=== PATIENT | male | born 1950 | race Caucasian/White ===

== ENCOUNTER 2021-02-16 16:46 | Emergency (ER) | payer MEDICARE, BC ==
[2021-02-16 16:50] VITALS: RESP 20; TEMP 98.5
--- NOTE | 2021-02-16 17:31 | ED ---
General Adult HPI - General Chief complaint: Recheck/Abnormal Lab/Rx Stated complaint: abnormal labs Time Seen by Provider: 02/16/21 16:53 Source: patient Mode of arrival: ambulatory Limitations: no limitations - History of Present Illness Initial comments: 71-year-old male presents to the emergency department accompanied by his spouse for evaluation of weakness. Patient states he has a history of liver disease and is concerned about progression of illness causing his weakness. States he slept poorly last night and has been unable to do as much as usual over the past several days. Complains of lack of energy, feeling chilled, and intermittent h eadaches for several weeks. Spouse reports she is concerned about blood in his urine due to its darkened appearance. Patient does report lower extremity edema, which he states is not unusual, however also reports new onset right calf pain that began 2 days ago. Denies fever, chest pain, shortness of breath, difficulty breathing, abdominal pain, constipation, and dysuria. - Related Data Home Medications Medication Instructions Recorded Confirmed Acetaminophen [Tylenol] 325 - 650 mg PO Q4H PRN 02/16/21 02/16/21 Acetaminophen-Codeine 300-30mg 1 tab PO TID PRN 02/16/21 02/16/21 [Tylenol w/codeine #3] Bumetanide [BUMEX] 2 mg PO Q12H 02/16/21 02/16/21 Fluticasone Nasal [place] [Flonase 2 spr EA NOSTRIL DAILY 02/16/21 02/16/21 Nasal [place]] Gabapentin 800 mg PO BID 02/16/21 02/16/21 Insulin Glargine,Hum.rec.anlog 60 unit SQ BID 02/16/21 02/16/21 [Lantus Solostar Pen] Insulin Lispro [humaLOG Kwikpen] 60 unit SQ AC-TID 02/16/21 02/16/21 Lactulose [Constulose] 20 gm PO TID 02/16/21 02/16/21 Potassium Gluconate [Potassium 99 mg PO DAILY PRN 02/16/21 02/16/21 Gluconate ER] Spironolactone 100 mg PO DAILY 02/16/21 02/16/21 Tamsulosin [Flomax] 0.4 mg PO HS 02/16/21 02/16/21 Allergies Allergy/AdvReac Type Severity Reaction Status Date / Time azithromycin AdvReac Nausea & Verified 02/16/21 20:27 [From Zithromax Z-Raphael] Vomiting Review of Systems ROS Statement: Those systems with pertinent positive or pertinent negative responses have been documented in the HPI. ROS Other: All systems not noted in ROS Statement are negative. Past Medical History Past Medical History: Hypertension, Liver Disease History of Any Multi-Drug Resistant Organisms: None Reported Past Surgical History: No Surgical Hx Reported Past Psychological History: No Psychological Hx Reported Smoking Status: Never smoker Past Alcohol Use History: None Reported Past Drug Use History: None Reported General Exam Limitations: no limitations General appearance: alert, in no apparent distress Head exam: Present: atraumatic, normocephalic, normal inspection Eye exam: Present: normal appearance, PERRL, EOMI. Absent: scleral icterus, conjunctival injection, periorbital swelling Pupils: Present: other (sclera do not appear yellowed) ENT exam: Present: normal exam, normal oropharynx, mucous membranes moist Neck exam: Present: normal inspection, full ROM. Absent: tenderness, meningismus Respiratory exam: Present: normal lung sounds bilaterally. Absent: respiratory distress, wheezes, rales, rhonchi, stridor Cardiovascular Exam: Present: regular rate, normal rhythm, normal heart sounds. Absent: systolic murmur, diastolic murmur, rubs, gallop, clicks GI/Abdominal exam: Present: soft, normal bowel sounds. Absent: distended, tenderness, guarding, rebound, rigid Left Hand Wrist exam: Present: swelling (mild edema of the left hand) Left Upper Leg exam: Present: normal inspection, full ROM. Absent: tenderness, swelling Knee exam: Present: normal inspection, full ROM. Absent: tenderness, swelling Lower Leg exam: Present: swelling (1+ pitting edema). Absent: tenderness, erythema, Homans' sign Ankle exam: Present: swelling (2+ pitting edema) Foot/Toe exam: Present: swelling Neurovascular tendon exam: Present: no vascular compromise (+2 pedal and post- tibial pulses palpable). Absent: pulse deficit, abnormal cap refill, motor deficit, sensory deficit Right Hip exam: Present: normal inspection, full ROM. Absent: tenderness, swelling Upper Leg exam: Present: normal inspection, full ROM. Absent: tenderness, swelling Knee exam: Present: normal inspection, full ROM. Absent: tenderness, swelling Lower Leg exam: Present: tenderness (right calf tenderness, worse with palpation), swelling (RLE edema>LLE edema; 2+ pitting edema). Absent: erythema, Homans' sign Ankle exam: Present: swelling (2+ pitting edema). Absent: tenderness, erythema Foot/Toe exam: Present: swelling. Absent: tenderness Neurovascular tendon exam: Present: no vascular compromise. Absent: pulse deficit, abnormal cap refill, motor deficit, sensory deficit, extremity cold to touch Back exam: Present: normal inspection. Absent: CVA tenderness (R), CVA tenderness (L) Neurological exam: Present: alert, oriented X3, CN II-XII intact Expanded Patient oriented to: Present: person, place, time Speech: Present: fluid speech Cranial nerves: EOM's Intact: Normal Motor strength exam: RUE: 5, LUE: 5, RLE: 5, LLE: 5 Eye Response: (4) open spontaneously Motor Response: (6) obeys commands Verbal Response: (5) oriented Psychiatric exam: Present: normal affect, normal mood Skin exam: Present: warm, dry, intact, normal color, other (no appearance of jaundice). Absent: rash Course Vital Signs 02/16/21 02/16/21 02/16/21 16:47 18:00 20:00 Temperature 98.5 F Pulse Rate 62 76 72 Respiratory 20 20 20 Rate Blood Pressure 148/67 153/52 124/44 O2 Sat by Pulse 100 99 95 Oximetry 02/16/21 02/16/21 21:45 22:51 Temperature Pulse Rate 62 67 Respiratory 20 20 Rate Blood Pressure 144/87 115/57 O2 Sat by Pulse 98 98 Oximetry Medical Decision Making - Medical Decision Making This is a 71-year-old male with a complex medical history significant for type 2 diabetes, liver disease, and hypertension. He presents to the emergency department this evening accompanied by his spouse for evaluation weakness that has been ongoing issue over the past several months, but has worsened somewhat over the past few weeks. Patient's spouse expresses concern about worsening of his liver disease, but also is concerned about worsening right lower extremity edema and calf pain concerning for DVT. Upon exam, patient is alert and oriented and in no acute distress. Patient is neurologically intact with no focal deficits. Abdomen is obese, soft, and nontender. He does not appear jaundiced. He does not complain of headache, chest pain, or abdominal pain upon presentation. Does complain of worsening right lower extremity edema that is accompanied by pain in the right calf. Compression stockings were removed in order to fully examine lower extremities. Pedal and posttibial pulses are easily palpable; negative Homans sign; right lower extremity edema is greater than left lower extremity edema. Ultrasound of the right lower extremity was obtained and is negative for DVT. An attempt to further evaluate patient's ongoing weakness, laboratory studies, chest x-ray, and EKG were obtained. Laboratory studies were reviewed. There were no baseline studies available for comparison as patient has not had a previous workup done at this facility. Hematology study shows low RBCs, hemoglobin, hematocrit, and platelet count. He is mildly dehydrated with a sodium of 133 and BUN 22; due to peripheral edema, I V fluids were not administered. Patient tolerating oral intake without difficulty. Glucose is elevated at 214; he is a known diabetic and has not yet taken his insulin. Total bilirubin is 3.2 and Ammonia level is 70. Though concerning levels, patient is alert with no neurological findings. Spouse reports known elevated ammonia level, however does not have a value to provide any baseline information. Urinalysis is unremarkable. EKG shows normal sinus rhythm. Chest x-ray has no acute findings. Patient has had inconsistent follow-up care regarding his cirrhosis of the liver. He is currently prescribed lactulose 3 times a day but is often not taking it as prescribed. States he has not seen his GI doctor, DR. Jones at [facility] in [place], for nearly one year due to COVID. This patient's care was discussed with my attending Dr. Noble. As patient does not exhibit any neurological symptoms, is tolerating oral intake without difficulty, and has the ability to follow up with a GI provider, he will be discharged home with strict return parameters. Encouraged to call both his PCP and GI doctor for follow up appointments on Thursday morning. Reiterated importance of medication compliance. Given dose of Lactulose prior to departure. Patient and spouse verbalize understanding and agree with this plan. - Lab Data Result diagrams: 02/16/21 18:01 02/16/21 18: Lab Results 02/16/21 02/16/21 02/16/21 Range/Units 18: 18: 18: WBC 4.6 (3.8-10.6) k/uL RBC 3.68 L (4.30-5.90) m/uL Hgb 12.6 L (13.0-17.5) gm/dL Hct 36.3 L (39.0-53.0) % MCV 98.6 (80.0-100.0) fL MCH 34.2 (25.0-35.0) pg MCHC 34.7 (31.0-37.0) g/dL RDW 14.9 (11.5-15.5) % Plt Count 75 L (150-450) k/uL MPV 7.3 Neutrophils % 74 % Lymphocytes % 14 % Monocytes % 7 % Eosinophils % 1 % Basophils % 0 % Neutrophils # 3.4 (1.3-7.7) k/uL Lymphocytes # 0.7 L (1.0-4.8) k/uL Monocytes # 0.3 (0-1.0) k/uL Eosinophils # 0.0 (0-0.7) k/uL Basophils # 0.0 (0-0.2) k/uL PT 11.1 (9.0-12.0) sec INR 1.1 (<1.2) APTT 27.3 (22.0-30.0) sec Sodium 133 L (137-145) mmol/L Potassium 4.2 (3.5-5.1) mmol/L Chloride 103 (98-107) mmol/L Carbon Dioxide 22 (22-30) mmol/L Anion Gap 8 mmol/L BUN 22 H (9-20) mg/dL Creatinine 0.87 (0.66-1.25) mg/dL Est GFR (CKD-EPI)AfAm >90 (>60 ml/min/1.73 sqM) Est GFR (CKD-EPI)NonAf 88 (>60 ml/min/1.73 sqM) Glucose 214 H (74-99) mg/dL Calcium 9.6 (8.4-10.2) mg/dL Magnesium 2.2 (1.6-2.3) mg/dL Total Bilirubin 3.2 H (0.2-1.3) mg/dL AST 34 (17-59) U/L ALT 17 (4-49) U/L Alkaline Phosphatase 87 (38-126) U/L Ammonia (<30) umol/L Troponin I (0.000-0.034) ng/mL NT-Pro-B Natriuret Pep pg/mL Total Protein 6.3 (6.3-8.2) g/dL Albumin 3.1 L (3.5-5.0) g/dL Urine Color Urine Appearance (Clear) Urine pH (5.0-8.0) Ur Specific [place] (1.001-1.035) Urine Protein (Negative) Urine Glucose (UA) (Negative) Urine Ketones (Negative) Urine Blood (Negative) Urine Nitrite (Negative) Urine Bilirubin (Negative) Urine Urobilinogen (<2.0) mg/dL Ur Leukocyte Esterase (Negative) 02/16/21 02/16/21 02/16/21 Range/Units 18:01 18:01 18:01 WBC (3.8-10.6) k/uL RBC (4.30-5.90) m/uL Hgb (13.0-17.5) gm/dL Hct (39.0-53.0) % MCV (80.0-100.0) fL MCH (25.0-35.0) pg MCHC (31.0-37.0) g/dL RDW (11.5-15.5) % Plt Count (150-450) k/uL MPV Neutrophils % % Lymphocytes % % Monocytes % % Eosinophils % % Basophils % % Neutrophils # (1.3-7.7) k/uL Lymphocytes # (1.0-4.8) k/uL Monocytes # (0-1.0) k/uL Eosinophils # (0-0.7) k/uL Basophils # (0-0.2) k/uL PT (9.0-12.0) sec INR (<1.2) APTT (22.0-30.0) sec Sodium (137-145) mmol/L Potassium (3.5-5.1) mmol/L Chloride (98-107) mmol/L Carbon Dioxide (22-30) mmol/L Anion Gap mmol/L BUN (9-20) mg/dL Creatinine (0.66-1.25) mg/dL Est GFR (CKD-EPI)AfAm (>60 ml/min/1.73 sqM) Est GFR (CKD-EPI)NonAf (>60 ml/min/1.73 sqM) Glucose (74-99) mg/dL Calcium (8.4-10.2) mg/dL Magnesium (1.6-2.3) mg/dL Total Bilirubin (0.2-1.3) mg/dL AST (17-59) U/L ALT (4-49) U/L Alkaline Phosphatase (38-126) U/L Ammonia 70 H (<30) umol/L Troponin I <0.012 (0.000-0.034) ng/mL NT-Pro-B Natriuret Pep 195 pg/mL Total Protein (6.3-8.2) g/dL Albumin (3.5-5.0) g/dL Urine Color Urine Appearance (Clear) Urine pH (5.0-8.0) Ur Specific [place] (1.001-1.035) Urine Protein (Negative) Urine Glucose (UA) (Negative) Urine Ketones (Negative) Urine Blood (Negative) Urine Nitrite (Negative) Urine Bilirubin (Negative) Urine Urobilinogen (<2.0) mg/dL Ur Leukocyte Esterase (Negative) 02/16/21 Range/Units 20:00 WBC (3.8-10.6) k/uL RBC (4.30-5.90) m/uL Hgb (13.0-17.5) gm/dL Hct (39.0-53.0) % MCV (80.0-100.0) fL MCH (25.0-35.0) pg MCHC (31.0-37.0) g/dL RDW (11.5-15.5) % Plt Count (150-450) k/uL MPV Neutrophils % % Lymphocytes % % Monocytes % % Eosinophils % % Basophils % % Neutrophils # (1.3-7.7) k/uL Lymphocytes # (1.0-4.8) k/uL Monocytes # (0-1.0) k/uL Eosinophils # (0-0.7) k/uL Basophils # (0-0.2) k/uL PT (9.0-12.0) sec INR (<1.2) APTT (22.0-30.0) sec Sodium (137-145) mmol/L Potassium (3.5-5.1) mmol/L Chloride (98-107) mmol/L Carbon Dioxide (22-30) mmol/L Anion Gap mmol/L BUN (9-20) mg/dL Creatinine (0.66-1.25) mg/dL Est GFR (CKD-EPI)AfAm (>60 ml/min/1.73 sqM) Est GFR (CKD-EPI)NonAf (>60 ml/min/1.73 sqM) Glucose (74-99) mg/dL Calcium (8.4-10.2) mg/dL Magnesium (1.6-2.3) mg/dL Total Bilirubin (0.2-1.3) mg/dL AST (17-59) U/L ALT (4-49) U/L Alkaline Phosphatase (38-126) U/L Ammonia (<30) umol/L Troponin I (0.000-0.034) ng/mL NT-Pro-B Natriuret Pep pg/mL Total Protein (6.3-8.2) g/dL Albumin (3.5-5.0) g/dL Urine Color Yellow Urine Appearance Clear (Clear) Urine pH 6.0 (5.0-8.0) Ur Specific [place] 1.018 (1.001-1.035) Urine Protein Negative (Negative) Urine Glucose (UA) 2+ H (Negative) Urine Ketones Negative (Negative) Urine Blood Negative (Negative) Urine Nitrite Negative (Negative) Urine Bilirubin Negative (Negative) Urine Urobilinogen 6.0 (<2.0) mg/dL Ur Leukocyte Esterase Negative (Negative) - EKG Data EKG shows normal: sinus rhythm Rate: normal EKG Comments: EKG was obtained at 1740 and shows normal sinus rhythm with sinus arrhythmia. Ventricular rate 73, NC interval 190, QRS duration 106, QT/QTc 416/450. - Radiology Data Radiology results: report reviewed, image reviewed Ultrasound of the right upper quadrant was obtained. Report was reviewed in its entirety. Impression per Dr. Castro is gallbladder not seen. No dilated ducts. Limited exam. Venous Doppler study of the right lower extremity was obtained. Report was reviewed in its entirety. Impression per Dr. Castro is no evidence of deep vein thrombosis in the right leg. Two-view chest x-ray was obtained. Report was reviewed in its entirety. Impression per Dr. Castro is no active cardiopulmonary disease. No change. Disposition Clinical Impression: Chronic liver disease and cirrhosis, Hyperbilirubinemia, Dehydration, mild, Thrombocytopenia Disposition: HOME SELF-CARE Condition: Stable Instructions (If sedation given, give patient instructions): Cirrhosis (ED), Liver Disease Diet (DC) Additional Instructions: Please follow your home medication regimen exactly as prescribed. Call you GI doctor, DR. Jones, to schedule a recheck. Follow up with your family doctor early next week if you will be delayed in seeing Dr. Jones. Return to the Emergency Department with any new, worsening, or concerning symptoms. Is patient prescribed a controlled substance at d/c from ED?: No Referrals: Saul Copeland DO [Primary Care Provider] - 1-2 days Time of Disposition: 23:45
[2021-02-16 18:23] LABS: Basophils % (A) 0 %; Eosinophils % (A) 1 %; HCT 36.3 % (39.0-53.0); HGB 12.6 gm/dL (13.0-17.5); Lymphocytes # (A) 0.7 k/uL (1.0-4.8); Lymphocytes % (A) 14 %; MCH 34.2 pg (25.0-35.0); MCHC 34.7 g/dL (31.0-37.0); MCV 98.6 fL (80.0-100.0); Mean Platelet Volume 7.3; Monocytes # (A) 0.3 k/uL (0-1.0); Monocytes % (A) 7 %; Neutrophils # (A) 3.4 k/uL (1.3-7.7); Neutrophils % (A) 74 %; RBC 3.68 m/uL (4.30-5.90); RDW 14.9 % (11.5-15.5); WBC 4.6 k/uL (3.8-10.6)
[2021-02-16 18:24] LABS: INR 1.1 (<1.2); Partial Thromboplastin Time 27.3 sec (22.0-30.0); Prothrombin Time 11.1 sec (9.0-12.0)
[2021-02-16 18:38] LABS: ALT 17 U/L (4-49); AST 34 U/L (17-59); African American GFR (CKD) >90 (>60 ml/min/1.73 sqM); Albumin 3.1 g/dL (3.5-5.0); Alkaline Phosphatase 87 U/L (38-126); Anion Gap 8 mmol/L; Blood Urea Nitrogen 22 mg/dL (9-20); Calcium 9.6 mg/dL (8.4-10.2); Carbon Dioxide 22 mmol/L (22-30); Chloride 103 mmol/L (98-107); Glucose 214 mg/dL (74-99); Magnesium 2.2 mg/dL (1.6-2.3); Non-African American GFR(CKD) 88 (>60 ml/min/1.73 sqM); Potassium 4.2 mmol/L (3.5-5.1); Sodium 133 mmol/L (137-145); Total Bilirubin 3.2 mg/dL (0.2-1.3); Total Protein 6.3 g/dL (6.3-8.2)
--- NOTE | 2021-02-16 18:52 | XR ---
EXAMINATION TYPE: XR chest 2V DATE OF EXAM: 02/16/2021 COMPARISON: NONE HISTORY: Weakness TECHNIQUE: 2 views FINDINGS: There is no heart failure nor confluent pneumonic infiltrate. Costophrenic angles are clear . There are no hilar masses. Bony thorax is intact. IMPRESSION: No active cardiopulmonary disease. No change.
--- NOTE | 2021-02-16 19:45 | US ---
EXAMINATION TYPE: US venous doppler duplex LE RT DATE OF EXAM: 02/16/2021 7:37 PM COMPARISON: NONE CLINICAL HISTORY: pain, right calf. SIDE PERFORMED: Right TECHNIQUE: The lower extremity deep venous system is examined utilizing real time linear array sonog slade with graded compression, doppler sonography and color-flow sonography. VESSELS IMAGED: Common Femoral Vein Deep Femoral Vein Greater Saphenous Vein * Femoral Vein Popliteal Vein Small Saphenous Vein * Proximal Calf Veins (* superficial vessels) Right Leg: Appears negative for DVT IMPRESSION: No evidence of deep vein thrombosis in the right leg.
[2021-02-16 19:49] LABS: Platelet Count 75 k/uL (150-450)
[2021-02-16 20:52] LABS: Appearance,Urine Clear (Clear); Bilirubin,Urine Negative (Negative); Blood,Urine Negative (Negative); Color,Urine Yellow; Glucose,Urine (UA) 2+ (Negative); Ketones,Urine Negative (Negative); Leukocyte Esterase,Urine Negative (Negative); Nitrite,Urine Negative (Negative); Protein,Urine Negative (Negative); Specific Gravity,Urine 1.018 (1.001-1.035)
[2021-02-16] MEDS ORDERED: GABAPENTIN 400 MG CAP PO STA (22:44)
[2021-02-16] MEDS ORDERED: Acetaminophen-Codeine 300-30mg TAB PO STA (22:44)
[2021-02-16 22:57] VITALS: BP 115/57; PULSE 67
--- NOTE | 2021-02-16 23:00 | US ---
EXAMINATION TYPE: US abdomen limited DATE OF EXAM: 02/16/2021 COMPARISON: NONE CLINICAL HISTORY: RUQ, known liver cirrhosis. Patient ate prior to exam EXAM MEASUREMENTS: Liver Length: 16.0 cm Gallbladder Wall: n/a CBD: 0.4 cm Right Kidney: 10.7 x 5.5 x 5.2 cm Difficult and limited study due to patient body habitus Pancreas: obscured by overlying midline bowel gas Liver: scanned intercostally, limited visualization Gallbladder: not seen, patient not properly prepped Evidence for sonographic Willams's sign: no CBD: visualized portions wnl, limited by overlying bowel gas Right Kidney: wnl IMPRESSION: Gallbladder not seen. No dilated ducts. Limited exam.
[2021-02-16] MEDS ORDERED: LACTULOSE 20 GM/30 ML CUP PO ONE (23:40)
== END 2021-02-17 00:07 | disposition home or self-care (01) ==
LOC: EC 16:46
DX: K74.60 Unspecified cirrhosis of liver (principal); M79.661 Pain in right lower leg; E80.6 Other disorders of bilirubin metabolism; E86.0 Dehydration; D69.6 Thrombocytopenia, unspecified; I10 Essential (primary) hypertension
CPT/HCPCS: 36415; 71046; 76705; 80053; 81003; 82140; 83735; 83880; 84484; 85025; 85610; 85730; 93005; 99285